=== PATIENT | female | born 2000 | race Caucasian/White ===

== ENCOUNTER 2023-12-29 00:05 | Emergency (ER) | payer BC, SELFPAY ==
[2023-12-29 00:14] VITALS: BP 119/83; PULSE 84; RESP 16; TEMP 36.5; O2SAT 98; BMI 33.3
[2023-12-29 00:26] VITALS: O2SAT 98
--- NOTE | 2023-12-29 01:27 | ED.GENADULT ---
HPI - General Adult General Chief complaint: Unspecified Complaint, Adult Stated complaint: Infection from tattoo Time Seen by Provider: 12/29/23 01:12 Source: patient Mode of arrival: ambulatory Limitations: no limitations History of Present Illness HPI narrative: 23-year-old female presents the ED with a 2 day history of fatigue this started after she got a tattoo on her right leg. Pain with ambulation. Bilateral leg myalgias, right worse than left which is the side that she got the tattoo on. Think she may be noticing a faint amount of redness at the tattoo site. It is not observed by myself nor the triage nurse. There is no redness or streaking up and down the leg. She has no fevers. She does note a mild headache and congestion as well. No cough. No severe shortness of breath. No dysuria or other localizing symptoms of infection. Has not tried Tylenol or ibuprofen. Has not tried to be evaluated in clinic or urgent care. Her rationale for coming to the emergency department in the middle of the night is unclear. No prior history of immunocompromised status, no prior history of cellulitis. This is her 3rd tattoo. Past medical history notable for anxiety, borderline personality. Home medications are lower acid own and sertraline. She also uses testosterone and has an IUD. Nonsmoker. ROS is notable for the generalized and leg symptoms as above, otherwise denies times 12 systems. Related Data Home Medications ?Medication ?Instructions ?Recorded ?Confirmed lurasidone 20 mg tablet (Latuda) 20 mg PO QAM 12/24/22 12/24/22 sertraline 100 mg tablet 100 mg PO DAILY 12/24/22 12/24/22 Allergies Allergy/AdvReac Type Severity Reaction Status Date / Time No Known Drug Allergies Allergy Verified 12/24/22 19:01 Exam Const: Vital Signs, click to edit/add: Vital Signs - 24 hr 12/29/23 00:14 Temperature 97.7 F Pulse Rate [Left P ulse Oximeter] 84 Respiratory Rate 16 Blood Pressure [Ri ght Upper Arm] 119/83 Pulse Oximetry 98 Oxygen Delivery Me thod Room Air Documenting provider has reviewed patient's vital signs: yes General appearance: cooperative and well kempt Other: Anxious but well nourished, well hydrated, nontoxic. HENMT: Common normals: normocephalic Head and scalp: normocephalic Face and sinus: normal facial exam Mouth: oral and palatal mucosa normal Throat: posterior oropharynx normal Eye: Common normals: conjunctivae normal General eye: normal appearance of both eyes Conjunctiva: conjunctiva(e) normal Neck & C-Spine: Common normals: full ROM and no lymphadenopathy Resp: Common normals: normal respiratory effort, no use of accessory muscles and clear to auscultation bilaterally Effort & inspection: able to speak in complete sentences Auscultation: clear to auscultation bilaterally Cardio: Common normals: regular rate, regular rhythm, S1 normal heart sound, S2 normal heart sound and no murmurs Rate: regular rate Rhythm: regular rhythm Heart sounds: S1 normal and S2 normal Extremity: Common normals: normal to inspection, full ROM, normal capillary refill, no joint enlargement and no pedal edema Other: Both feet and ankles with normal range of motion, no effusion, no redness. The tattooed area in question is in the inner right medial mid calf area. It looks great. No redness, no streaking, no drainage. Mildly tender to palpation, not unexpected for a fresh tattoo. Psych: Appearance: well kempt Attitude: engaged Insight: fair Judgement: fair Other: Anxious but cooperative. Easily reassured. Skin: Common normals: no rashes or lesions noted General skin exam: no rashes or lesions noted Course Course ED Course: 23-year-old female fearing a staph infection because of diffuse myalgias and fatigue. Side of tattoo looks excellent. No signs of localized cellulitis, complication, infection etc.. Systemic symptoms are more suspicious for viral infection. Since she does not have risk factors for severe disease. She does not have any hypoxia, tachycardia, hypertension, tachypnea or other physical exam findings that would warrant further workup, I do not recommend viral swabs, blood work or x-ray. Counseled on Tylenol and ibuprofen, conservative management. May return to all typical work and school duties. Continue her appropriate care for the tattoo site and re-evaluate if things worsen or evolve. Would expect viral symptoms to last 5-10 days. Vital Signs Vital signs: Initial Vital Signs Temperature 97.7 F 12/29/23 00:14 Temperature Source Temporal Artery Scan 12/29/23 00:14 Pulse Rate 84 12/29/23 00:14 Pulse Rhythm Regular 12/29/23 00:14 Respiratory Rate 16 12/29/23 00:14 Blood Pressure 119/83 12/29/23 00:14 Blood Pressure Mean 95 12/29/23 00:14 Blood Pressure Position Sitting 12/29/23 00:14 Pulse Oximetry 98 12/29/23 00:14 Oxygen Delivery Method Room Air 12/29/23 00:14 Vital Signs Temperature 97.7 F 12/29/23 00:14 Pulse Rate 84 12/29/23 00:14 Respiratory Rate 16 12/29/23 00:14 Blood Pressure 119/83 12/29/23 00:14 Pulse Oximetry 98 12/29/23 00:14 Oxygen Delivery Method Room Air 12/29/23 00:14 Temperature 97.7 F 12/29/23 00:14 Pulse Rate 84 12/29/23 00:14 Respiratory Rate 16 12/29/23 00:14 Blood Pressure 119/83 12/29/23 00:14 Pulse Oximetry 98 12/29/23 00:14 Oxygen Delivery Method Room Air 12/29/23 00:14 Discharge Plan Discharge Clinical Impression: Influenza-like illness Patient Disposition: Home, Self-Care Condition: Stable Instructions: Viral Syndrome (ED) Additional Instructions: As we discussed, the tattoo and leg are looking great. I do not think this is the source of your symptoms. We are seeing many people right now with body aches, generalized fatigue and weakness. Chances are your symptoms are better explained by a viral illness. Based on your past medical history, there is not utility for testing for influenza, RSV or COVID as you would not meet typical criteria for antiviral medication. Keep caring for the new tattoo as you have been doing. It is okay to use Tylenol 1000 mg every 6 hours and or ibuprofen 600 mg every 6 hours to help mitigate your symptoms. Symptoms may last up to 12 days. If you have any severe shortness of breath, severe weakness, persistent vomiting or other alarming symptoms, you should come back to emergency department. He may return to work and or school unrestricted. Activity Level: No Restrictions Discharge Diet: Regular Prescriptions: No Action sertraline 100 mg tablet 100 mg PO DAILY lurasidone [Latuda] 20 mg tablet 20 mg PO QAM Rx Instructions: must administer with food (at least 350 calories) Follow Up/Referrals: Provider,Not a Local [Primary Care Provider] - Stand Alone Forms: MyHealth Info Instructions
== END 2023-12-29 01:48 | disposition home or self-care (01) ==
LOC: ED 01:33
PROVIDERS: Emergency Provider Family Medicine
DX: J11.1 Influenza due to unidentified influenza virus with other respiratory manifestations (principal)
CPT/HCPCS: 99283